=== PATIENT | female | born 1990 | race Asian ===

== ENCOUNTER 2017-08-02 16:35 | Emergency (ER) | payer OTHER ==
[~2017-08-02] VITALS: Ht 157.5 cm; Wt 77.1 kg
[2017-08-02] MEDS ORDERED: NKM (16:46)
--- NOTE | 2017-08-02 17:01 | Emergency Room Report ---
History of Present Illness General Chief Complaint: Complications Source: Patient Present Illness HPI Patient's 27-year-old female who presented after right-sided abdominal pain. Patient noted have recent diagnosis of . She reported having prior history or NSAIDs. She denied fever. Pain as crampy in nature. She denied diarrhea . She denied vaginal bleeding. Patient has not had ultrasound. She was sent in for rule out of ectopic . She reports having prior history of ovarian cysts. Allergies: Coded Allergies: No Known Allergies (Unverified , 08/02/17) Patient History Past Medical History: see triage record Last Menstrual Period: 06/10/17 Now: Yes - ~ 7weeks : 2 Para: 0 Reviewed Nursing Documentation: PMH: Agreed, PSxH: Agreed Nursing Documentation-PMH Past Medical History: No Stated History Review of Systems All Other Systems: negative except mentioned in HPI Physical Exam Vital Signs Date Time Temp Pulse Resp B/P (MAP) Pulse Ox O2 Delivery O2 Flow Rate FiO2 08/02/17 16:40 98.1 76 16 136/79 97 Room Air 98.1 Sp02 EP Interpretation: reviewed, normal General Appearance: normal inspection, well appearing, no apparent distress, alert, GCS 15 Head: atraumatic ENT: normal ENT inspection, hearing grossly normal, normal voice Neck: normal inspection, full range of motion, supple, no bony tend Respiratory: normal inspection, lungs clear, normal breath sounds, no respiratory distress, no retraction, no wheezing Cardiovascular #1: regular rate, rhythm, no edema Gastrointestinal: normal inspection, normal bowel sounds, non tender, soft, no guarding, no hernia Genitourinary: no CVA tenderness Musculoskeletal: normal inspection, back normal, normal range of motion Neurologic: normal inspection, alert, responsive, speech normal Psychiatric: normal inspection, judgement/insight normal, mood/affect normal Skin: normal inspection, normal color, no rash Medical Decision Making Diagnostic Impression: Primary Impression: Intrauterine ER Course Patient presented for abdominal pain. Differential diagnoses included ectopic , ischemic bowel, appendicitis, perforated viscus, abdominal aortic aneurysm, inferior myocardial infarction, viral gastroenteritis. Patient was noted to have positive pregnance test. Pelvic ultrasound showed IUP with adequate FHR. Patient was advised to follow up with her [employer] for recheck in the next two days. She is to return if any concerns. Labs Test 08/02/17 17:05 White Blood Count 10.8 K/UL (4.8-10.8) Red Blood Count 4.90 M/UL (4.20-5.40) Hemoglobin 13.3 G/DL (12.0-16.0) Hematocrit 41.0 % (37.0-47.0) Mean Corpuscular Volume 84 FL (80-99) Mean Corpuscular Hemoglobin 27.1 PG (27.0-31.0) Mean Corpuscular Hemoglobin Concent 32.4 G/DL (32.0-36.0) Red Cell Distribution Width 11.8 % (11.6-14.8) Platelet Count 357 K/UL (150-450) Mean Platelet Volume 7.5 FL (6.5-10.1) Neutrophils (%) (Auto) 70.8 % (45.0-75.0) Lymphocytes (%) (Auto) 20.0 % (20.0-45.0) Monocytes (%) (Auto) 7.0 % (1.0-10.0) Eosinophils (%) (Auto) 0.9 % (0.0-3.0) Basophils (%) (Auto) 1.2 % (0.0-2.0) Human Chorionic Gonadotropin, Quant 42130 mIU/mL (1-6) Last Vital Signs Date Time Temp Pulse Resp B/P (MAP) Pulse Ox O2 Delivery O2 Flow Rate FiO2 08/02/17 16:40 98.1 76 16 136/79 97 Room Air 98.1 Status: improved Disposition: HOME, SELF-CARE Condition: Stable Ambrose Blandon Aug 02, 2017 17:00
[2017-08-02 17:37] LABS: BASOPHILS % (AUTO) 1.2 % (0.0-2.0); EOSINOPHILS % (AUTO) 0.9 % (0.0-3.0); HEMOGLOBIN 13.3 G/DL (12.0-16.0); MEAN CORPUSCULAR VOLUME 84 FL (80-99); NEUTROPHILS % (AUTO) 70.8 % (45.0-75.0); PLATELET COUNT 357 K/UL (150-450); RED CELL DISTRIBUTION WIDTH 11.8 % (11.6-14.8); WHITE BLOOD COUNT 10.8 K/UL (4.8-10.8)
[2017-08-02 19:30] VITALS: BP 130/78
[2017-08-02 19:39] VITALS: BP 130/78
--- NOTE | 2017-08-03 13:17 | Diagnostic Imaging Report ---
Indication: Pelvic pain Technique: Grayscale and duplex Doppler imaging of the pelvis performed utilizing a transabdominal scan and endovaginal scan. Comparison: None Findings: Single living intrauterine demonstrated. Gestational age 6 weeks 2 days based on crown-rump length. heart tones demonstrated. heart rate 152 bpm. Yolk sac identified. Cervical nabothian cysts demonstrated. The ovaries are not demonstrated well on this examination and only seen transabdominally. IMPRESSION: Single living intrauterine 6 weeks 2 days gestational age
== END 2017-08-02 19:39 | disposition home or self-care (01) ==
LOC: EMR 17:16
DX: O26.891 Other specified pregnancy related conditions, first trimester (principal); Z3A.01 Less than 8 weeks gestation of pregnancy; R10.9 Unspecified abdominal pain
CPT/HCPCS: 36415; 76801; 76830; 84702; 85025; 86900; 86901; 99284